=== PATIENT | male | born 1990 | race Caucasian/White ===

== ENCOUNTER 2016-07-16 11:07 | Inpatient (IN) | payer OTHER ==
[~2016-07-16 11:07] MED LIST: DEXAMETHASONE SOD PHOSPHATE INJ 4 MG/1 ML VIAL ONE; GLYCOPYRROLATE INJ 0.4 MG/2 ML VIAL ONE; KETOROLAC TROMETHAMINE 60 MG/2 ML SDV ONE; METOCLOPRAMIDE HCL INJ/PF 10 MG/2 ML SDV ONE; NEOSTIGMINE METHYLSULFATE 10 MG/10 ML VIAL ONE; ONDANSETRON HCL INJ/PF 4 MG/2 ML SDV ONE; ROCURONIUM BROMIDE INJ 50 MG/5 ML VIAL IV ONE; SUCCINYLCHOLINE CHLORIDE INJ 200 MG/10 ML VIAL ONE
--- NOTE | 2016-07-16 11:22 | ER Document Report ---
ED Medical Screen (RME) - General Stated Complaint: STOMACH PAIN Mode of Arrival: Wheelchair Information source: Patient Notes: pt presents to the ED with c/o severe abdominal pain. Reports generalized abdominal pain but mostly periumbilical. The patient reports he was in severe pain this morning. reports that she found him on the floor crying. She reports he never cries. 911 was called and he was taken to [facility]. He reports a gave him Dilaudid fluids and discharged him. Patient still has his appendix. Complains of generalized abdominal pain with palpation. Denies trauma. Denies fever vomiting diarrhea but reports he's nauseated. Patient does have history of IBS but reports this pain is different. Reports he's taken his IBS medications. I have greeted and performed a rapid initial assessment of this patient. A comprehensive ED assessment and evaluation of the patient, analysis of test results and completion of the medical decision making process will be conducted by additional ED providers. TRAVEL OUTSIDE OF THE [place] IN LAST 30 DAYS: No Past Medical History GI Medical History: Reports: Hx Irritable Bowel, Hx Ulcer
[2016-07-16] MEDS ORDERED: ONDANSETRON HCL INJ/PF 4 MG/2 ML SDV IV ONE (11:40)
[2016-07-16 11:46] LABS: HEMATOCRIT 46.5 % (37.9-51.0); HEMOGLOBIN 15.9 g/dL (13.5-17.0); HGB HCT DIFFERENCE 1.2; MEAN CORPUSCULAR HEMOGLOBIN 32.8 pg (27.0-33.4); MEAN CORPUSCULAR HGB CONC 34.3 g/dL (32.0-36.0); MEAN CORPUSCULAR VOLUME 96 fl (80-97); RED BLOOD COUNT 4.86 10^6/uL (4.35-5.55); RED CELL DISTRIBUTION WIDTH 12.7 % (11.5-14.0)
[2016-07-16] MEDS ORDERED: NORMAL SALINE 1000 ML 1,000 ML IV ONE ×2 (11:54→14:00)
--- NOTE | 2016-07-16 11:55 | ER Document Report ---
ED GI/ - General Chief Complaint: Abdominal Pain Stated Complaint: STOMACH PAIN Mode of Arrival: Wheelchair Notes: The patient is a 25-year-old male, past medical history IBS, negative EGD and colonoscopy at [facility], presents with 1 day of nausea, vomiting and increased abdominal distention. His last bowel movement was at 1 AM and it was loose. He denies abdominal surgeries. Denies chest pain, back pain, urinary symptoms or fevers. TRAVEL OUTSIDE OF THE [place] IN LAST 30 DAYS: No - Related Data Allergies/Adverse Reactions: No Known Allergies Allergy (Unverified 07/16/16 11:19) Past Medical History - General Information source: Patient - Social History Smoking Status: Never Smoker Chew tobacco use (# tins/day): No Frequency of alcohol use: Occasional Drug Abuse: None Family History: Other - Gallbladder disease Patient has suicidal ideation: No Patient has homicidal ideation: No Renal/ Medical History: Denies: Hx Peritoneal Dialysis GI Medical History: Reports: Hx Irritable Bowel, Hx Ulcer Review of Systems - Review of Systems Notes: REVIEW OF SYSTEMS: CONSTITUTIONAL: -fevers, -chills EENT: -eye pain, -difficulty swallowing, -nasal congestion CARDIOVASCULAR:-chest pain, -syncope. RESPIRATORY: -cough, -SOB GASTROINTESTINAL: +abdominal pain, +nausea, +vomiting, -diarrhea GENITOURINARY: -dysuria, -hematuria MUSCULOSKELETAL: -back pain, -neck pain SKIN: -rash or skin lesions. HEMATOLOGIC: -easy bruising or bleeding. LYMPHATIC: -swollen, enlarged glands. NEUROLOGICAL: -altered mental status or loss of consciousness, -headache, - neurologic symptoms PSYCHIATRIC: -anxiety, -depression. ALL OTHER SYSTEMS REVIEWED AND NEGATIVE. Physical Exam - Vital signs Vitals: Temp Pulse Resp BP Pulse Ox 97.9 F 86 20 116/70 98 07/16/16 11:19 07/16/16 11:19 07/16/16 11:19 07/16/16 11:19 07/16/16 11:19 - Notes Notes: PHYSICAL EXAMINATION: GENERAL: Mild distress, actively vomiting HEAD: Atraumatic, normocephalic. EYES: Pupils equal round and reactive to light, extraocular movements intact, sclera anicteric, conjunctiva are normal. ENT: nares patent, oropharynx clear without exudates. Moist mucous membranes. NECK: Normal range of motion, supple without lymphadenopathy LUNGS: Breath sounds clear to auscultation bilaterally and equal. No wheezes rales or rhonchi. HEART: Regular rate and rhythm without murmurs ABDOMEN: Decreased bowel sounds, abdominal tenderness over periumbilical and right lower quadrant EXTREMITIES: Normal range of motion, no pitting or edema. No cyanosis. NEUROLOGICAL: Cranial nerves grossly intact. Normal speech, normal gait. Normal sensory, motor, and reflex exams. PSYCH: Normal mood, normal affect. SKIN: Warm, Dry, normal turgor, no rashes or lesions noted. Course - Re-evaluation Re-evalutation: Patient with abdominal tenderness, worsening in right lower quadrant. Decreased bowel sounds. CT shows small bowel instruction. He has never had surgery in the past. Spoke to Dr. Angeles (Surgeon instructional coach) and he will admit patient. Recommends fluids and NG tube. He may take patient to the OR. - Vital Signs Vital signs: Temp Pulse Resp BP Pulse Ox 97.9 F 86 20 116/70 98 07/16/16 11:19 07/16/16 11:19 07/16/16 11:19 07/16/16 11:19 07/16/16 11:19 - Laboratory Result Diagrams: 07/16/16 11:25 07/16/16 11:25 Laboratory results interpreted by me: 07/16/16 07/16/16 11:25 11:25 WBC 14.0 H Seg Neuts % (Manual) 91 H Band Neutrophils % 1 L Lymphocytes % (Manual) 5 L Abs Neuts (Manual) 12.9 H Potassium 5.1 H Glucose 124 H - Diagnostic Test Radiology reviewed: Image reviewed, Reports reviewed Radiology results interpreted by me: CT A/P: SBO with transition point in pelvis Discharge - Discharge Clinical Impression: Small bowel obstruction Condition: Stable Disposition: ADMITTED INPATIENT Admitting Provider: Surgicalist - Karthik Unit Admitted: Surgical Floor
[2016-07-16 12:03] LABS: ALANINE AMINOTRANSFERASE 46 U/L (21-72); ALKALINE PHOSPHATASE 89 U/L (38-126); ANION GAP 16 (5-19); ASPARTATE AMINO TRANSFERASE 42 U/L (17-59); BILIRUBIN,DIRECT 0.3 mg/dL (0.0-0.4); BILIRUBIN,TOTAL 0.9 mg/dL (0.2-1.3); BLOOD UREA NITROGEN 10 mg/dL (7-20); CALCIUM 10.1 mg/dL (8.4-10.2); CARBON DIOXIDE 23 mmol/L (22-30); CHLORIDE 102 mmol/L (98-107); CREATININE RESULT 0.84 mg/dL (0.52-1.25); GLUCOSE 124 mg/dL (75-110); LIPASE 24.9 U/L (23-300); POTASSIUM 5.1 mmol/L (3.6-5.0); SODIUM 140.6 mmol/L (137-145); TOTAL PROTEIN 7.6 g/dL (6.3-8.2)
[2016-07-16 12:12] LABS: BAND NEUTROPHILS % (MANUAL) 1 % (3-5); BASOPHILS % (MANUAL) 0 % (0-2); EOSINOPHILS % (MANUAL) 0 % (0-6); LYMPHOCYTES % (MANUAL) 5 % (13-45); TOTAL CELLS COUNTED 100
[2016-07-16 12:13] LABS: PLATELET CLUMPS PRESENT; RBC MORPHOLOGY COMMENT NORMO-CYTIC/CHROMIC
[2016-07-16] MEDS ORDERED: METOCLOPRAMIDE HCL INJ/PF 10 MG/2 ML SDV IV ONE (12:40)
[2016-07-16] MEDS ORDERED: MIDAZOLAM 2 MG/2 ML INJ IV ONE (13:31)
[2016-07-16 13:39] LABS: APPEARANCE,URINE CLEAR; BILIRUBIN,URINE NEGATIVE (NEGATIVE); GLUCOSE, URINE NEGATIVE (NEGATIVE); KETONES,URINE 20 mg/dL (NEGATIVE); LEUKOCYTE ESTERASE,URINE NEGATIVE (NEGATIVE); NITRITE,URINE NEGATIVE (NEGATIVE); PROTEIN,URINE NEGATIVE (NEGATIVE); URINE SPECIFIC GRAVITY 1.035; UROBILINOGEN,URINE NEGATIVE mg/dL (<2.0)
[2016-07-16] MEDS ORDERED: PIPERACILLIN SODIUM/TAZOBACTAM 3.375 GM in NORMAL SALINE 100 ML IV ONE (14:00)
[2016-07-16] MEDS ORDERED: FENTANYL CITRATE INJ/PF 100 MCG/2 ML AMPUL ONE (15:13)
[2016-07-16] MEDS ORDERED: HYDROMORPHONE HCL INJ/PF 2 MG/ML AMPULE ONE (15:13)
[2016-07-16] MEDS ORDERED: EPHEDRINE SULFATE INJ 50 MG/1 ML AMPULE ONE (15:14)
[2016-07-16] MEDS ORDERED: ACETAMINOPHEN 100 ML IV ONE (15:14)
[2016-07-16] MEDS ORDERED: MIDAZOLAM 2 MG/2 ML INJ ONE (15:14)
[2016-07-16] MEDS ORDERED: PROPOFOL INJ 200 MG/20 ML VIAL IV ONE (15:14)
[2016-07-16] MEDS ORDERED: BUPIVACAINE HCL 0.25 % INJ/PF (2.5 MG/1 ML) 30 ML VIAL ONE (16:40)
[2016-07-16] MEDS ORDERED: POTASSI CL 20 MEQ/D5NS 1L 1000 ML IV PRN (17:13)
[2016-07-16] MEDS ORDERED: ONDANSETRON HCL INJ/PF 4 MG/2 ML SDV IV PRN ×2 (17:14→17:25)
[2016-07-16] MEDS ORDERED: DIPHENHYDRAMINE HCL 50 MG/ML VIAL IV PRN (17:25)
[2016-07-16] MEDS ORDERED: FENTANYL CITRATE INJ/PF 100 MCG/2 ML AMPUL IV PRN ×3 (17:25)
[2016-07-16] MEDS ORDERED: OXYCODONE-ACETAMINOPHEN 5-325 MG TABLET PO PRN ×2 (17:25)
[2016-07-16] MEDS ORDERED: MEPERIDINE HCL/PF INJ 25 MG/1 ML DISP.SYRIN IV PRN (17:25)
[2016-07-16] MEDS ORDERED: MORPHINE SULFATE 10 MG/ML INJ IV PRN (17:25)
[2016-07-16] MEDS ORDERED: PROMETHAZINE HCL INJ 25 MG/1 ML VIAL IV PRN ×2 (17:25)
--- NOTE | 2016-07-16 17:58 | HISTORY AND PHYSICAL E ---
History and Physical NAME: ELISABETH HAMMOND : 1990 AGE: 25Y ADMITTED: 07/16/2016 ROOM: ED19 HISTORY OF PRESENT ILLNESS: A 25-year-old male patient presenting to the emergency room with a history of abdominal pain from last night, midnight, and several episodes with nausea and vomiting several times. He had 1 bowel movement early last night, but nothing after that, not even flatus. The patient has increasing abdominal pain, several times of vomiting, and came to the emergency room. Upon evaluation in the emergency room, found to have a high white count and then also, abdominal CT scan and pelvis done, which revealed a small bowel obstruction with the transition point clearly decompressed small bowel loops in the pelvis. The patient never had an abdominal surgery in the past. The patient, for the last 1 year, has had abdominal discomfort on and off, some bloating, some pain in the mid abdomen. He was thought to have an irritable bowel. He did have an endoscopy and a colonoscopy in the past and he was told that no Crohn's disease and no inflammatory bowel disease. PAST MEDICAL PROBLEMS: None. SURGICAL HISTORY: No significant surgeries except for endoscopies. REVIEW OF SYSTEMS: As per the examination. PHYSICAL EXAMINATION: GENERAL: He is a very healthy looking gentleman, not in any distress. No icterus. HEENT: Mucous membranes slightly dry, indicating dehydration. Normocephalic. NECK: No lymphadenopathy. No masses. RESPIRATORY: Both lungs are clear to auscultation. CARDIOVASCULAR: Both heart sounds are regular. No murmurs. No gallops. ABDOMEN: Soft abdomen. Tender in the mid abdomen with minimal rebound. With no palpable masses, no palpable hernia. EXTREMITIES: Normal. Well perfused. DIAGNOSTIC DATA: He had a CT scan of the abdomen and pelvis, reviewed: Small bowel dilation clearly seen. The appendix, however, appeared to be generally normally and he had some diverticulosis. IMPRESSION AND PLAN: Overall, distal small bowel obstruction, uncertain etiology, high grade, most likely mechanical, either a mass or abdominal herniation or Meckels diverticulitis with maybe small bowel obstruction in the pelvis. In any case, it would be much better _ because of the possible mechanical pathology. All of this was discussed with the patient and we will plan and go ahead with the surgery, an emergency exploratory laparoscopy, possible laparotomy, possible colectomy, possible small bowel resection all explained to the patient who understands and agrees with the plan of management. DICTATING PHYSICIAN: FILOMENA CAMPA M.D. [id number] PHY#: [id number] ID: [id number] JOB#: [id number] ACCT: [id number] cc:FILOMENA CAMPA M.D. > [facility]
[2016-07-16] MEDS: HYDROMORPHONE HCL INJ/PF 2 MG/ML AMPULE IV PRN ×2 (18:50→21:38)
[2016-07-16] MEDS ORDERED: PIPERACILLIN/TAZOBACTAM 3.375 GM VIAL IV ONE ×2 (22:11→22:30)
[2016-07-16] MEDS: PIPERACILLIN SODIUM/TAZOBACTAM 3.375 GM in NORMAL SALINE 100 ML IV SCH (23:19)
[2016-07-16] MEDS: DEXTROSE 5%-1/2 NORMAL SALINE 1,000 ML IV PRN (23:20)
[2016-07-17] MEDS: HYDROMORPHONE HCL INJ/PF 2 MG/ML AMPULE IV PRN ×4 (00:50→11:27)
[2016-07-17] MEDS: PIPERACILLIN SODIUM/TAZOBACTAM 3.375 GM in NORMAL SALINE 100 ML IV SCH ×2 (05:24→13:47)
[2016-07-17 06:42] LABS: ANION GAP 12 (5-19); BLOOD UREA NITROGEN 8 mg/dL (7-20); CALCIUM 8.6 mg/dL (8.4-10.2); CARBON DIOXIDE 24 mmol/L (22-30); CHLORIDE 103 mmol/L (98-107); CREATININE RESULT 0.76 mg/dL (0.52-1.25); GLUCOSE 122 mg/dL (75-110); POTASSIUM 4.5 mmol/L (3.6-5.0); SODIUM 138.8 mmol/L (137-145)
[2016-07-17 06:50] LABS: HEMATOCRIT 39.6 % (37.9-51.0); HGB HCT DIFFERENCE 0.6; MEAN CORPUSCULAR HEMOGLOBIN 32.8 pg (27.0-33.4); MEAN CORPUSCULAR HGB CONC 33.9 g/dL (32.0-36.0); MEAN CORPUSCULAR VOLUME 97 fl (80-97); RED BLOOD COUNT 4.09 10^6/uL (4.35-5.55); RED CELL DISTRIBUTION WIDTH 12.7 % (11.5-14.0); WHITE BLOOD COUNT 14.8 10^3/uL (4.0-10.5)
[2016-07-17 06:51] LABS: HEMOGLOBIN 13.4 g/dL (13.5-17.0)
[2016-07-17] MEDS: ENOXAPARIN SODIUM INJ 40 MG/0.4 ML DISP.SYRIN SUBCUT SCH (08:12)
[2016-07-17] MEDS ORDERED: ENOXAPARIN SODIUM INJ 40 MG/0.4 ML DISP.SYRIN SUBCUT SCH (10:00)
[2016-07-17] MEDS ORDERED: POTASSI CL 20 MEQ/D5-1/2NS 1L 1000 ML IV PRN (10:05)
[2016-07-17] MEDS ORDERED: ONDANSETRON HCL INJ/PF 4 MG/2 ML SDV IV PRN (10:30)
[2016-07-17] MEDS ORDERED: HYDROMORPHONE HCL INJ/PF 2 MG/ML AMPULE IV PRN ×2 (10:30→12:25)
[2016-07-17] MEDS: DEXTROSE 5%-1/2 NORMAL SALINE 1,000 ML IV PRN (11:35)
[2016-07-17] MEDS ORDERED: NORMAL SALINE 1000 ML 1,000 ML IV ONE (12:20)
[2016-07-17] MEDS ORDERED: PIPERACILLIN SODIUM/TAZOBACTAM 3.375 GM in NORMAL SALINE 100 ML IV SCH (14:00)
[2016-07-17] MEDS: KETOROLAC TROMETHAMINE INJ/PF 30 MG/1 ML SDV IV PRN ×2 (15:32→23:10)
[2016-07-17] MEDS: HYDROCODONE/ACETAMINOPHEN 5-325 MG TABLET PO PRN (20:31)
--- NOTE | 2016-07-17 20:40 | OPERATIVE REPORT E ---
Operative Report NAME: ELISABETH HAMMOND : 1990 AGE: 25Y DATE OF SURGERY: 07/16/2016 ROOM: 415 PREOPERATIVE DIAGNOSIS: A 25-year-old male patient presented with a preop diagnosis of intestinal obstruction. 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 OPERATION: 1. Laparoscopic exploration. 2. Laparoscopic Meckel diverticulectomy. SURGEON: FILOMENA CAMPA M.D. ANESTHESIA: General. ESTIMATED BLOOD LOSS: Less than 10 mL. SPECIMENS: Meckel diverticulum. HISTORY AND INDICATIONS: As described. DESCRIPTION OF OPERATION: The patient in the lithotomy position with CD boots. He was given prophylactic antibiotic. The abdomen was cleaned and draped for sterile field. Initially a supraumbilical 5 mm trocar was inserted. Under direct laparoscopic observation, two 5 mm trocars were inserted in the right side of the abdomen and then later on, a 5 mm trocar in the suprapubic area. The abdominal cavity, small bowel and colon were explored methodically. Basically the small bowel loops were dilated all the way to the distal ileum, up to distal 30 cm to 40 cm. The small bowel was collapsed and then proximally was also dilated, with straightening from the terminal ileum approximately 2 feet away in a location of the ileocecal junction, Meckel diverticulum was seen and it was attached to a large band of congenital herniation that was causing the small bowel obstruction. This congenital herniation was lysed by using sharp dissection. After that the ileum was released. It was examined carefully and no necrosis and no ischemia, so that no need for the bowel resection was felt. Then around the intestine completely all the way to the duodenal junction again to the terminal ileum, no other obstructing points, no other lesions. After that the Meckel diverticulum was mobilized and then Meckel diverticulum performed at the base of the connection to the ileum with a wedge. Then after removing it along with the wedge, the staple line which was used as a 60-stapler, stapling was inverted with a 2-0 Vicryl continuous stitch. No narrowing of the lumen and excellent lumen was maintained at the Meckel diverticulum area. Abdominal cavity was irrigated, suctioned out, and thoroughly completely hemostatic, and then Seprafilm was and inserted in abdominal cavity to prevent adhesions. After that the trocars were removed and hemoperitoneum evacuation. Then closure with 0-Vicryl for the fascia, 3-0 Monocryl for the skin. Dressings were applied with Dermabond. The patient was stable throughout the operation and was taken to the recovery room in stable condition. DICTATING PHYSICIAN: FILOMENA CAMPA M.D. [id number] PHY#: [id number] ID: [id number] JOB#: [id number] ACCT: [id number] cc:FILOMENA CAMPA M.D. >
[2016-07-18] MEDS: HYDROCODONE/ACETAMINOPHEN 5-325 MG TABLET PO PRN ×2 (05:16→10:36)
[2016-07-18] MEDS: ENOXAPARIN SODIUM INJ 40 MG/0.4 ML DISP.SYRIN SUBCUT SCH (09:03)
[2016-07-18 11:49] LABS: ABSOLUTE EOSINOPHILS # (AUTO) 0.1 10^3/uL (0.0-0.6); ABSOLUTE LYMPHOCYTES (AUTO) 1.6 10^3/uL (0.5-4.7); ABSOLUTE MONOCYTES (AUTO) 0.5 10^3/uL (0.1-1.4); ABSOLUTE NEUT (AUTO) 6.7 10^3/uL (1.7-8.2); BASOPHILS % (AUTO) 0.5 % (0-2); HEMATOCRIT 37.2 % (37.9-51.0); HEMOGLOBIN 12.9 g/dL (13.5-17.0); HGB HCT DIFFERENCE 1.5; LYMPHOCYTES % (AUTO) 17.6 % (13-45); MEAN CORPUSCULAR HEMOGLOBIN 33.3 pg (27.0-33.4); MEAN CORPUSCULAR HGB CONC 34.7 g/dL (32.0-36.0); MEAN CORPUSCULAR VOLUME 96 fl (80-97); MONOCYTES % (AUTO) 5.9 % (3-13); RED BLOOD COUNT 3.88 10^6/uL (4.35-5.55); RED CELL DISTRIBUTION WIDTH 12.5 % (11.5-14.0)
[2016-07-18 12:07] LABS: ANION GAP 8 (5-19); BLOOD UREA NITROGEN 10 mg/dL (7-20); CALCIUM 8.9 mg/dL (8.4-10.2); CARBON DIOXIDE 30 mmol/L (22-30); CHLORIDE 103 mmol/L (98-107); GLUCOSE 91 mg/dL (75-110); POTASSIUM 3.7 mmol/L (3.6-5.0)
--- NOTE | 2016-07-18 16:53 | DISCHARGE SUMMARY E ---
Discharge Summary NAME: ELISABETH HAMMOND : 1990 AGE: 25Y ADMITTED: 07/16/2016 DISCHARGED: 07/18/2016 FINAL DIAGNOSES: 1. Small bowel obstruction. 2. Meckel diverticulum. 3. Intraabdominal adhesions. PROCEDURES: On July 16, the patient underwent diagnostic laparoscopy with Meckel diverticulectomy and lysis of adhesions. COMPLICATION: None. HOSPITAL COURSE: This is a healthy 25-year-old male who presented to the hospital with abdominal pain, abdominal distension, obstipation and found to have a small bowel mechanical obstruction. The patient underwent laparoscopy which Meckel diverticulum was identified. This was resected and the small bowel volvulus was also de-torsed. In addition, small loops of small bowel were identified and divided. The patient's hospital course was unremarkable. His vital signs remained stable. He remained n.p.o. for 24 hours postop and following that the nasogastric tube was removed. His diet was advanced to clear liquids and then to regular diet. On the day of discharge, the patient had no complaints. Abdomen is soft. His bowel function has returned with stool and flatus. He has tolerated regular diet well. His vital signs were stable. His physical exam was unremarkable. His blood work was unremarkable as well including a normal CBC and normal BMP. The patient was discharged home on July 18, 2016 and was given a followup appointment in the surgical office in 1-2 weeks. He was given instructions to have a regular diet, shower only for 2 weeks afterward he can bathe, activity as tolerated. Tylenol only for pain. DICTATING PHYSICIAN: AYLIN LIVINGSTON M.D. [id number] PHY#: [id number] ID: [id number] JOB#: [id number] ACCT: [id number] cc:FILOMENA CAMPA M.D., GIOVANNI M.D. > [facility]
--- NOTE | 2016-07-18 17:43 | PROGRESS NOTE E ---
Progress Note NAME: ELISABETH HAMMOND : 1990 AGE: 25Y DATE: 07/18/2016 ROOM: 415 SUBJECTIVE: The patient has no complaints. He denies abdominal pain, nausea or vomiting, and eating regular diet well. He reports flatus and had a bowel movement today. OBJECTIVE: VITAL SIGNS: Vital signs are stable. Patient is afebrile. ABDOMEN: Soft, nontender and nondistended. All incisions are clean, dry and intact. REVIEW OF LABS: White blood cell count 9.0, hemoglobin 12, hematocrit 37, platelet count 170. Electrolytes, BUN and creatinine are within normal limits. ASSESSMENT: 1. Postop day #3 following diagnostic laparoscopy, resection of Meckel diverticulum and lysis of adhesions. 2. The patient at this time hemodynamically stable and afebrile. 3. Blood work unremarkable. 4. Physical exam unremarkable. 5. Patient tolerating p.o. well and bowel function returned. PLAN: 1. Discharge to go home today. 2. Follow up in the office in 1-2 weeks. 3. Regular diet. 4. Tylenol only for pain. DICTATING PHYSICIAN: AYLIN LIVINGSTON M.D. [id number] PHY#: [id number] ID: [id number] JOB#: [id number] ACCT: [id number] cc: >
[2016-07-18 17:54] VITALS: BP 116/64
== END 2016-07-18 19:04 | disposition home or self-care (01) | DRG 348 ==
LOC: ER 11:07 → UNDOADMIN 13:50 → EH 13:50 → 4N 17:48 → EH 17:48
PROVIDERS: ADMIT Colon & Rectal Surgery; ATTEND Colon & Rectal Surgery
PROC: 0DBB4ZZ Excision of Ileum, Percutaneous Endoscopic Approach (ICD-10-PCS; principal; 2016-07-16 15:45)
DX: Q43.0 Meckel's diverticulum (displaced) (hypertrophic) (principal); K56.5 Intestinal adhesions [bands] with obstruction (postinfection)
CPT/HCPCS: 36415; 74177; 790; 80048; 80053; 81001; 83690; 85025; 85027; 88304; 96361; 96374; 96375; 99285; J0131; J0330; J1100; J1170; J1650; J1885; J2250; J2405; J2543; J2704; J2765; J3010; J3490; J7030

== ENCOUNTER 2016-08-18 12:00 | Emergency (ER) | payer OTHER ==
--- NOTE | 2016-08-18 12:43 | ER Document Report ---
ED GI/ - General Time seen by provider: 12:35 Mode of Arrival: Ambulatory Information source: Patient, Relative - spouse TRAVEL OUTSIDE OF THE [place] IN LAST 30 DAYS: No - HPI Onset: Other - see HPI note Associated symptoms: Constipation Similar symptoms previously: Yes Recently seen / treated by doctor: Yes - General Chief Complaint: Abdominal Pain Stated Complaint: ABDOMINAL PAIN Notes: Patient is a 26-year-old male presenting to the emergency department for possible constipation. Patient states that he has not had bowel movement since Monday. Patient had a bowel obstruction and was treated with surgery at this hospital on 07/16/2016. Dr. Winston conducted this patient's surgery. Patient states that on Monday night he had an episode of bilious emesis and so he saw Dr. Winston in the office on Monday. Patient was given enemas and to take mag citrate. Patient states that before his bowel obstruction, he had a bowel movement 1-2 times per day. Patient's spouse states that he has not been eating much or drinking enough water. Patient denies any pain. Patient has no known allergies. (JOHNNY FONSECA) - Related Data Allergies/Adverse Reactions: No Known Allergies Allergy (Verified 08/18/16 12:38) Past Medical History - General Information source: Patient - Social History Smoking Status: Unknown if Ever Smoked Family History: Other - Gallbladder disease Patient has suicidal ideation: No Patient has homicidal ideation: No GI Medical History: Reports: Hx Irritable Bowel, Hx Ulcer Past Surgical History: Reports: Hx Abdominal Surgery - Bowel obstruction repair Review of Systems - Review of Systems Constitutional: No symptoms reported EENT: No symptoms reported Cardiovascular: No symptoms reported Respiratory: No symptoms reported Gastrointestinal: See HPI, Last bowel movement - Monday Genitourinary: No symptoms reported Male Genitourinary: No symptoms reported Musculoskeletal: No symptoms reported Skin: No symptoms reported Hematologic/Lymphatic: No symptoms reported Neurological/Psychological: No symptoms reported -: Yes All other systems reviewed and negative Physical Exam - Vital signs Interpretation: Normal - General General appearance: Appears well, Alert In distress: Mild - HEENT Head: Normocephalic, Atraumatic Eyes: Normal Pupils: PERRL Mucous membranes: Moist - Respiratory Respiratory status: No respiratory distress Chest status: Nontender Breath sounds: Normal Chest palpation: Normal - Cardiovascular Rhythm: Regular Heart sounds: Normal auscultation Murmur: No - Abdominal Inspection: Normal Distension: No distension Bowel sounds: Hypoactive Tenderness: Nontender Organomegaly: No organomegaly - Back Back: Normal, Nontender - Extremities General upper extremity: Normal inspection, Normal ROM, Normal strength General lower extremity: Normal inspection, Normal ROM, Normal strength - Neurological Neuro grossly intact: Yes Cognition: Normal Orientation: AAOx4 Godwin Coma Scale Eye Opening: Spontaneous Godwin Coma Scale Verbal: Oriented Godwin Coma Scale Motor: Obeys Commands Godwin Coma Scale Total: 15 Speech: Normal - Psychological Associated symptoms: Normal affect, Normal mood - Skin Skin Temperature: Warm Skin Moisture: Dry Course - Re-evaluation Re-evalutation: 08/18/16 13:29 presents him or trauma decreased bowel movements for the past 5 days he also hasn't eaten as much the past 5 days he had diverticulitis and bowel surgery for about structure back on August 16 Dr. Winston. He's got no known nausea vomiting or diarrhea has been eating a little bit but not a significant amount and has not been drinking 8-10 glasses water today. On examination he's got good bowel sounds no guarding rebound rigidity or acute pathology. X-ray shows no bowel suction mild amount of stool. I did give him some GoLYTELY to be discharged with but told him to use this very cautiously as he has a very low stool burden and the fact that he is not having bowel movements every day does not mean that he needs to force himself to have bowel movements every day especially after he had a period of bowel instruction and decreased intake increase the fiber increase the water when it happens naturally the GoLYTELY is erythema needs it for primary care physician in 2-3 days and discussed reasons for ED return sooner (KERRY TILLMAN) - Vital Signs Vital signs: Temp Pulse Resp BP Pulse Ox 98.0 F 77 14 108/63 99 08/18/16 13:37 08/18/16 13:37 08/18/16 13:37 08/18/16 13:37 08/18/16 13:37 Discharge - Discharge Clinical Impression: mild constipation Condition: Stable Disposition: HOME, SELF-CARE Additional Instructions: Constipation Constipation is a common problem. It is especially likely as you get older. Constipation is a common cause of abdominal pain, but sometimes causes no symptoms at all. Causes of constipation include certain medications, dehydration, diets, inactivity, and low-fiber intake. Rarely, it can be a symptom of underlying disease. The physician has evaluated you for this. Avoid constipation by eating a diet high in fiber, fruits, and vegetables. Drink plenty of liquids. Get regular exercise. If possible, avoid constipating medicines like narcotic pain medication. Some vitamin tablets can cause constipation. Stool softeners may be needed for difficult cases. An excellent stool softener is Konsyl which is available at [employer], and [employer]. Just add a teaspoon to a glass of pineapple or orange juice daily or twice a day if needed. Laxatives are useful for occasional constipation. You should use them only when necessary. Too-frequent use can make your bowels dependent on them. Some over the counter laxatives available without prescription are: Milk of Magnesia, 1-2 tablespoons twice a day Dulcolax, 5 mg pill or 10 mg suppository. Citrate of Magnesia, 4-5 ounces a day for a day or two For acute constipation, Fleet's Enemas and Dulcolax suppositories are helpful. Chronic, rodent exterminator use of laxatives or enemas is not a good idea. Your bowel may become dependant on them. You do not need to have a bowel movement every day. Many people do fine with a bowel movement every three or four days. You should call your doctor or return for re-evaluation if you pass blood in the stool, or if you develop fever or increasing abdominal pain. follow up with your primary care physician in 2-3 days return for increasing worsening or new symptoms Prescriptions: Peg 3350/Na Sulf,Bicarb,Cl/KCl [Golytely Solution 4000 ml] 2,000 ml PO DAILY #1 bottle Forms: Return to Work Scribe Attestation: 08/18/16 13:29 I personally performed the services described in the documentation reviewed the documentation recorded by my scribe in my presence and it accurately and completely records my words and actions (KERRY TILLMAN) Scribe Documentation - Scribe Written by Scribe:: Johnny Fonseca 08/18/16 14:00 acting as scribe for :: Hansel
[2016-08-18 13:48] VITALS: BP 108/63
== END 2016-08-18 13:48 | disposition home or self-care (01) ==
LOC: ER 12:00
DX: K59.00 Constipation, unspecified (principal); R10.9 Unspecified abdominal pain
CPT/HCPCS: 74022; 99284

== ENCOUNTER → 2017-06-20 | Day surgery (SDC) | payer OTHER ==
[~2017-06-20] MED LIST changes: -DEXAMETHASONE SOD PHOSPHATE INJ 4 MG/1 ML VIAL ONE; -GLYCOPYRROLATE INJ 0.4 MG/2 ML VIAL ONE; -KETOROLAC TROMETHAMINE 60 MG/2 ML SDV ONE; +LIDOCAINE 2% JELLY 5 ML TUBE ONE; -METOCLOPRAMIDE HCL INJ/PF 10 MG/2 ML SDV ONE; -NEOSTIGMINE METHYLSULFATE 10 MG/10 ML VIAL ONE; -ONDANSETRON HCL INJ/PF 4 MG/2 ML SDV ONE; -ROCURONIUM BROMIDE INJ 50 MG/5 ML VIAL IV ONE; -SUCCINYLCHOLINE CHLORIDE INJ 200 MG/10 ML VIAL ONE
== END ==
LOC: END 07:40
PROVIDERS: ATTEND Internal Medicine Gastroenterology
PROC: 4A0B7BZ Measurement of Gastrointestinal Pressure, Via Natural or Artificial Opening (ICD-10-PCS; principal; 2017-06-20)
DX: R93.3 Abnormal findings on diagnostic imaging of other parts of digestive tract (principal)
CPT/HCPCS: 91010

== ENCOUNTER 2017-07-12 11:14 | Day surgery (SDC) | payer OTHER ==
[2017-07-10 09:54] LABS: HEMATOCRIT 44.1 % (37.9-51.0); MEAN CORPUSCULAR HEMOGLOBIN 31.4 pg (27.0-33.4); MEAN CORPUSCULAR VOLUME 92 fl (80-97); PLATELET COUNT 267 10^3/uL (150-450); RED BLOOD COUNT 4.77 10^6/uL (4.35-5.55); RED CELL DISTRIBUTION WIDTH 12.1 % (11.5-14.0); WHITE BLOOD COUNT 5.7 10^3/uL (4.0-10.5)
[2017-07-10 10:16] LABS: AMYLASE 77 U/L (30-110); ANION GAP 13 (5-19); BLOOD UREA NITROGEN 7 mg/dL (7-20); CALCIUM 10.1 mg/dL (8.4-10.2); CARBON DIOXIDE 29 mmol/L (22-30); CHLORIDE 100 mmol/L (98-107); GLUCOSE 72 mg/dL (75-110); POTASSIUM 4.7 mmol/L (3.6-5.0); SODIUM 141.8 mmol/L (137-145)
[~2017-07-12 11:14] MED LIST changes: +ACETAMINOPHEN 325 MG TABLET PO PRN; +BUPIVACAINE HCL 0.25 % INJ/PF (2.5 MG/1 ML) 30 ML VIAL ONE; +CEFAZOLIN 1 GM/D5W RTU 1 GM/50 ML RTUPB IV PRN; +LACTATED RINGERS 1000 ML IV PRN; +LIDOCAINE 0.5% INJ-PF (5 MG/ML) 50 ML SDV SUBCUT PRN; -LIDOCAINE 2% JELLY 5 ML TUBE ONE
[2017-07-12] MEDS ORDERED: EPHEDRINE SULFATE INJ 50 MG/1 ML AMPULE ONE (12:22)
[2017-07-12] MEDS ORDERED: FENTANYL CITRATE INJ/PF 250 MCG/5 ML AMPULE ONE (12:22)
[2017-07-12] MEDS ORDERED: PROPOFOL INJ 200 MG/20 ML VIAL IV ONE (12:22)
[2017-07-12] MEDS ORDERED: DEXMEDETOMIDINE INJ 80 MCG/20 ML VIAL IV ONE (12:22)
[2017-07-12] MEDS ORDERED: ACETAMINOPHEN 100 ML IV ONE (12:22)
[2017-07-12] MEDS ORDERED: MIDAZOLAM 2 MG/2 ML INJ ONE (12:22)
[2017-07-12] MEDS ORDERED: FENTANYL CITRATE INJ/PF 100 MCG/2 ML AMPUL IV PRN ×3 (12:55)
[2017-07-12] MEDS ORDERED: DIPHENHYDRAMINE HCL 50 MG/ML VIAL IV PRN (12:55)
[2017-07-12] MEDS ORDERED: PROMETHAZINE HCL INJ 25 MG/1 ML VIAL IV PRN ×2 (12:55)
[2017-07-12] MEDS ORDERED: MEPERIDINE HCL/PF INJ 25 MG/1 ML DISP.SYRIN IV PRN (12:55)
[2017-07-12] MEDS ORDERED: ONDANSETRON HCL INJ/PF 4 MG/2 ML SDV IV PRN ×2 (12:55→13:13)
--- NOTE | 2017-07-12 13:07 | Operative Report ---
Operative Report DATE OF SURGERY: 07/12/17 PREOPERATIVE DIAGNOSIS: Biliary dyskinesia POSTOPERATIVE DIAGNOSIS: Same OPERATION: Laparoscopic cholecystectomy SURGEON: EBONY WALLACE 1ST SENIOR SUPPLY CHAIN ANALYST: GARRICK EVANS ANESTHESIA: GA TISSUE REMOVED OR ALTERED: Gallbladder with contents COMPLICATIONS: None ESTIMATED BLOOD LOSS: none INTRAOPERATIVE FINDINGS: See below PROCEDURE: After obtaining informed consent, the patient was taken to the operating room. General Anesthesia was induced; the arms were extended, and the abdomen was exposed, and prepped and draped in a sterile fashion. Instrumentation was set up for laparoscopic cholecystectomy. Surgical plan and surgical timeout were conducted. A vertical incision was made above the umbilicus, and a verres needle was inserted uneventfully into the peritoneal cavity. Pneumoperitoneum was established. The verres needle was removed and a 5 mm trocar was inserted and a 5 mm flexible laparoscope was inserted. Visualization of the peritoneal cavity confirmed safe uneventful entry. Under direct visualization 3 additional 5 mm ports were established, one in the subxiphoid position and second in the subcostal position. Visualization of the hepatobiliary anatomy revealed no anatomic variations. A grasper was placed on the fundus of the gallbladder and the gallbladder is elevated over the right surface of the liver; a second grasper was used to grasp the infundibulum of the gallbladder. The neck of the gallbladder and junction with the cystic duct was dissected out. The Cystic artery was in its usual location medial and cephalad to the cystic duct. The cystic artery was surrounded with a right angle clamp, clipped twice proximally and divided with laparoscopic scissors. We now opened the triangle of Calot by dividing the peritoneal reflection on both the medial and lateral sides of the cystic duct infundibular junction. The critical view was obtained. We now milked the cystic duct of any possible stones, clipped the cystic duct approximately 2 times once distally and divided with scissors. The gallbladder was now removed from the undersurface of the liver using hook cautery dissection. Graspers were repositioned and the gallbladder was removed uneventfully from the abdominal cavity through the super umbilical port site incision. The specimen was examined, then passed off to pathology for permanent analysis. We returned to the peritoneal cavity check for bleeding, and evidence of bile leak, and there was none. We Confirmed satisfactory placement of clips on cystic duct and cystic artery were secured . At this point we felt the operation was complete. The subcutaneous tissue was then anesthetized with quarter percent Marcaine Sponge and needle counts are correct. All ports removed under direct visualization pneumoperitoneum evacuated, and 5 mm port wounds closed with 3-0 Vicryl suture, benzoin and Steri-Strips. The patient was extubated, and taken to the recovery room in stable condition. The physician visual merchandising assistant, Ms. Lisa, provided assistance during this case by: Assisting and port insertion, retracting tissue, instillation of local anesthesia and closure of skin incisions.
[2017-07-12] MEDS ORDERED: OXYCODONE-ACETAMINOPHEN 5-325 MG TABLET PO PRN (13:13)
--- NOTE | 2017-07-12 13:13 | Discharge Summary ---
Discharge Summary (SDC) - Discharge Final Diagnosis: Cholecystitis Date of Surgery: 07/12/17 Discharge Date: 07/12/17 Condition: Stable Treatment or Instructions: [facility] [address], [place] [address] Discharge Instructions: Laparoscopic Surgery 1. General Information: a. DO NOT DRIVE a car or operate dangerous machinery for 3-4 days or while taking narcotic pain pills. b. DO NOT consume alcohol, tranquilizers, sleeping medications or any non- prescribed medications for 24 hours unless approved by your doctor or as long as taking narcotic prescription medications. c. DO NOT make important decisions or sign any important papers for the first 24 hours after surgery. d. When discharged home the same day of surgery have a responsible person with you for the first night. 2. Activity Restrictions: 2 weeks a. NO heavy lifting, straining abdominal muscles, bending over a lot, yard work, house work, or sports for [address] for 3-4 days . c. It is fine to go for walks, up and down steps, ride in a car. d. Elevate your head when sleeping/resting. 3. Treatment: a. You may shower 24 hours after surgery, no baths or swimming for 2 weeks. Remove band-aids or dressings before shower but leave paper strips (steri-strips ) on the skin to fall off on their own. If still on at postoperative visit they will be removed then. b. Drainage of fluid or blood is not unusual from an incision. If occurs, you can clean with peroxide and cotton ball daily and cover with dry gauze until the wound seals. c. If a lot of bleeding occurs, you can hold pressure with a gauze or cloth over the site for 10 minutes and it will usually stop. If bleeding continues you will need to call for possible evaluation in office or emergency room. 4. Medications: a. __Toradol_ may be taken for pain as needed, one tablet 6 hours. b. You should resume all normal medications unless a change is specified by your doctors. 5. Diet: Begin with clear liquids and may progress to your normal diet if not nauseated. No high fat, high protein foods the day of surgery. 6. The following may occur after laparoscopic surgery: a. Shoulder or upper back ache from retained gas that should resolve in 1-2 days b. Soreness and bruising at incision sites will resolve with time. c. Scrotal swelling (labia in women) and bruising is often seen after hernia surgery. d. Sore throat e. Fatigue may last days to weeks. f. Difficulty urinating may occur and may need to come into emergency room for urinary catheter placement. 7. Notify Physician If: a. Worsening or pain not improved with pain medication b. Persistent nausea and vomiting c. Fever above 101 d. Persistent bleeding or swelling at operative site e. Unable to urinate and uncomfortable bladder 6-8 hours after surgery 8..Follow Up Care: a. Schedule a follow up appointment with your doctor for 2 weeks. In the event of any postoperative problems or questions or you may call the office during business hours or the On-Call physician evenings and weekends at [facility]. [facility] I understand the instructions for my postoperative care as described above and a copy has been given to me. Patient/Significant Other Witness Date Prescriptions: Ketorolac Tromethamine [Toradol 10 mg Tablet] 10 mg PO Q6HP PRN #20 tablet PRN Reason: Referrals: KENTON MALCOLM MD [Primary Care Provider] - Discharge Diet: Other (Comments) - small bland portions, avoid fatty/greasy foods Discharge Activity: Walk Frequently Report the Following to Your Physician Immediately: Nausea, Vomiting, Fever over 101 Degrees, Unusual Bleeding, Drainage-Foul Smelling
[2017-07-12 15:46] VITALS: BP 98/56
[2017-07-12] MEDS ORDERED: GLYCOPYRROLATE INJ 0.4 MG/2 ML VIAL ONE (15:53)
[2017-07-12] MEDS ORDERED: ROCURONIUM BROMIDE INJ 50 MG/5 ML VIAL IV ONE (15:53)
[2017-07-12] MEDS ORDERED: NEOSTIGMINE METHYLSULFATE 10 MG/10 ML VIAL ONE (15:53)
[2017-07-12] MEDS ORDERED: SUCCINYLCHOLINE CHLORIDE INJ 200 MG/10 ML VIAL ONE (15:53)
[2017-07-12] MEDS ORDERED: KETOROLAC TROMETHAMINE 60 MG/2 ML SDV ONE (15:53)
[2017-07-12] MEDS ORDERED: DEXAMETHASONE SOD PHOSPHATE INJ 4 MG/1 ML VIAL ONE (15:53)
[2017-07-12] MEDS ORDERED: METOCLOPRAMIDE HCL INJ/PF 10 MG/2 ML SDV ONE (15:53)
[2017-07-12] MEDS ORDERED: LIDOCAINE 2% INJ-PF (20 MG/ML) 2 ML AMPUL ONE (15:53)
== END 2017-07-12 15:35 | disposition home or self-care (01) ==
LOC: OROUT 11:14
PROVIDERS: ATTEND Surgery
DX: K81.1 Chronic cholecystitis (principal); Z79.899 Other long term (current) drug therapy
CPT/HCPCS: 36415; 82150; 85027; 80048; 88304 ×2; 47562; J2250; J0690; J3490 ×3; J1100; J1885; J3010; J2765; J0330; J2405; J2704; J0131; 790

== ENCOUNTER 2019-02-25 01:32 | Emergency (ER) | payer OTHER ==
[2019-02-25 01:43] VITALS: BP 139/53
[2019-02-25] MEDS ORDERED: KETOROLAC TROMETHAMINE INJ/PF 30 MG/1 ML SDV IV ONE (01:57)
[2019-02-25] MEDS ORDERED: ONDANSETRON HCL INJ/PF 4 MG/2 ML SDV IV ONE (01:57)
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
[2019-02-25 02:24] LABS: ABSOLUTE EOSINOPHILS # (AUTO) 0.5 10^3/uL (0.0-0.6); ABSOLUTE LYMPHOCYTES (AUTO) 1.2 10^3/uL (0.5-4.7); ABSOLUTE MONOCYTES (AUTO) 0.7 10^3/uL (0.1-1.4); ABSOLUTE NEUT (AUTO) 16.7 10^3/uL (1.7-8.2); BASOPHILS % (AUTO) 0.2 % (0-2); EOSINOPHILS % (AUTO) 2.7 % (0-6); HEMATOCRIT 44.6 % (37.9-51.0); HEMOGLOBIN 15.3 g/dL (13.5-17.0); MEAN CORPUSCULAR HEMOGLOBIN 33.1 pg (27.0-33.4); MEAN CORPUSCULAR HGB CONC 34.3 g/dL (32.0-36.0); MEAN CORPUSCULAR VOLUME 97 fl (80-97); MONOCYTES % (AUTO) 3.8 % (3-13); PLATELET COUNT 265 10^3/uL (150-450); RED BLOOD COUNT 4.62 10^6/uL (4.35-5.55); RED CELL DISTRIBUTION WIDTH 12.6 % (11.5-14.0); SEGMENTED NEUTROPHILS % (AUTO) 87.3 % (42-78); TOTAL CELLS COUNTED % (AUTO) 100 %; WHITE BLOOD COUNT 19.2 10^3/uL (4.0-10.5)
[2019-02-25 02:44] LABS: ALBUMIN 4.2 g/dL (3.5-5.0); ALCOHOL 72 mg/dL (NONE DETECTED); ALKALINE PHOSPHATASE 74 U/L (38-126); ANION GAP 11 (5-19); ASPARTATE AMINO TRANSFERASE 35 U/L (17-59); BILIRUBIN,DIRECT 0.1 mg/dL (0.0-0.4); BILIRUBIN,TOTAL 0.4 mg/dL (0.2-1.3); BLOOD UREA NITROGEN 6 mg/dL (7-20); CALCIUM 9.2 mg/dL (8.4-10.2); CARBON DIOXIDE 22 mmol/L (22-30); CHLORIDE 107 mmol/L (98-107); GLUCOSE 81 mg/dL (75-110); TOTAL PROTEIN 6.6 g/dL (6.3-8.2)
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
[2019-02-25] MEDS ORDERED: LIDOCAINE 1%/EPINEPHRINE INJ 20 ML VIAL INJ ONE (03:26)
[2019-02-25 03:59] LABS: URINE BARBITURATES SCREEN NEGATIVE; URINE BENZODIAZEPINES SCREEN NEGATIVE; URINE COCAINE SCREEN NEGATIVE; URINE MARIJUANA (THC) SCREEN NEGATIVE; URINE METHADONE SCREEN NEGATIVE; URINE PHENCYCLIDINE SCREEN NEGATIVE
[2019-02-25 04:06] LABS: APPEARANCE,URINE SLIGHTLY-CLOUDY; BILIRUBIN,URINE NEGATIVE (NEGATIVE); COLOR,URINE YELLOW; GLUCOSE, URINE NEGATIVE (NEGATIVE); KETONES,URINE NEGATIVE (NEGATIVE); LEUKOCYTE ESTERASE,URINE TRACE (NEGATIVE); NITRITE,URINE NEGATIVE (NEGATIVE); PROTEIN,URINE 100 mg/dL (NEGATIVE); URINE SPECIFIC GRAVITY 1.055; UROBILINOGEN,URINE NEGATIVE mg/dL (<2.0)
== END 2019-02-25 04:15 ==
LOC: ER 01:32
DX: S01.511A Laceration without foreign body of lip, initial encounter (principal); S39.91XA Unspecified injury of abdomen, initial encounter; Y04.2XXA Assault by strike against or bumped into by another person, initial encounter; Y93.89 Activity, other specified; Y92.009 Unspecified place in unspecified non-institutional (private) residence as the place of occurrence of the external cause; R51 Headache; R22.0 Localized swelling, mass and lump, head; R10.13 Epigastric pain; R11.0 Nausea; F17.200 Nicotine dependence, unspecified, uncomplicated; F41.9 Anxiety disorder, unspecified; K50.90 Crohn's disease, unspecified, without complications; Z79.899 Other long term (current) drug therapy; Z79.84 Long term (current) use of oral hypoglycemic drugs; Z63.5 Disruption of family by separation and divorce
CPT/HCPCS: 36415; 80307 ×2; 85025; 80053; 81001; 70450; 70486; 72125; 74177; 12011; L0120; J3490; J1885; J2405; 96374; 96375; 99284